=== PATIENT | male | born 1945 | race Caucasian/White ===

== ENCOUNTER → 2018-10-09 | Outpatient (CLI) | payer MEDICARE, BC ==
[~2018-10-09] MED LIST: AMIODARONE HCL100 MG; ASPIRIN325 PO; CALCIUM MAGNES1 EAC2 PO; CENTRUM SILVER1 EAC2 PO; COQ-10100 MG PO; DIGOXIN125 MCG PO; FLECAINIDE ACE100 MG PO; LANOXIN 0.120.125 M1 PO; LISINOPRIL5 MG PO; LOPRESSOR25 PO; PACERONE 200 M200 M1 PO; POTASSIUM20 PO; SAVAYSA60 MG PO; XARELTO20 MG PO
== END ==
LOC: M.RAD 11:29
DX: J84.10 Pulmonary fibrosis, unspecified (principal); Z79.899 Other long term (current) drug therapy; Z91.048 Other nonmedicinal substance allergy status; Z88.0 Allergy status to penicillin; Z88.8 Allergy status to other drugs, medicaments and biological substances

== ENCOUNTER → 2019-04-10 | Outpatient (CLI) | payer MEDICARE, BC | LOC: M.RAD 15:19 | DX: J98.4 Other disorders of lung (principal); Z79.899 Other long term (current) drug therapy ==

== ENCOUNTER → 2019-10-22 | Outpatient (CLI) | payer MEDICARE, BC | LOC: M.RAD 12:20 | PROVIDERS: ATTEND Internal Medicine Cardiovascular Disease | DX: Z79.899 Other long term (current) drug therapy (principal) ==

== ENCOUNTER → 2020-04-17 | Outpatient (CLI) | payer MEDICARE, BC | LOC: M.RAD 12:04 | PROVIDERS: ATTEND Internal Medicine Cardiovascular Disease | DX: I48.0 Paroxysmal atrial fibrillation (principal); J84.10 Pulmonary fibrosis, unspecified; Z79.899 Other long term (current) drug therapy ==

== ENCOUNTER → 2020-10-22 | Outpatient (CLI) | payer MEDICARE, BC | LOC: M.RAD 11:56 | PROVIDERS: ATTEND Internal Medicine Cardiovascular Disease | DX: J84.10 Pulmonary fibrosis, unspecified (principal); I48.0 Paroxysmal atrial fibrillation; I42.8 Other cardiomyopathies; Z79.899 Other long term (current) drug therapy ==

== ENCOUNTER 2021-03-08 14:10 | Inpatient (IN) | payer MEDICARE, BC ==
[~2021-03-08] VITALS: Ht 177.8 cm; Wt 104.0 kg
[2021-03-08 14:14] VITALS: BP 129/72
[2021-03-08] MEDS ORDERED: XARELTO20 MG PO (14:17)
[2021-03-08 14:46] LABS: ABSOLUTE LYMPHOCYTES 0.8 thou/uL (0.8-5.3); ABSOLUTE MONOCYTES 0.8 thou/uL (0.0-1.2); ABSOLUTE NEUTROPHILS 3.2 thou/uL (1.6-8.1); BASOPHILS 0.5 %; EOSINOPHILS 0.3 %; HEMATOCRIT 45.5 % (42.0-52.0); HEMOGLOBIN 16.1 gm/dL (14.0-18.0); MCH 30.6 pg (26.0-34.0); MCHC 35.3 g/dL (28.0-37.0); MCV 86.5 fL (80.0-100.0); MONOCYTES 16.6 %; MPV 7.1 fl. (7.2-11.1); NUCLEATED RBCS 0 /100WBC; PLATELET COUNT* 160 thou/uL (150-400); POLYS 66.6 %; RBC 5.26 mil/uL (4.50-6.00); RDW-CV 13.2 % (10.5-14.5); WBC 4.7 thou/uL (4.0-11.0)
[2021-03-08 14:52] LABS: CALCIUM 8.1 mg/dL (8.5-10.1); POTASSIUM 4.8 mmol/L (3.5-5.1)
[2021-03-08 15:03] LABS: ALBUMIN 3.9 g/dL (3.4-5.0); TOTAL BILIRUBIN 1.1 mg/dL (<0.1-1.0); TOTAL PROTEIN 7.4 g/dL (6.4-8.2)
[2021-03-08 15:59] LABS: CALCIUM 8.2 mg/dL (8.5-10.1); POTASSIUM 4.8 mmol/L (3.5-5.1)
[2021-03-08 20:30] VITALS: BP 131/70
[2021-03-08 20:54] LABS: URINE BILIRUBIN NEGATIVE (Negative); URINE BLOOD NEGATIVE (Negative); URINE CLARITY CLEAR; URINE COLOR YELLOW; URINE GLUCOSE-RANDOM NEGATIVE (Negative); URINE KETONES TRACE (Negative); URINE LEUKOCYTES-REFLEX NEGATIVE (Negative); URINE NITRITE-REFLEX NEGATIVE (Negative); URINE PROTEIN NEGATIVE (Negative); URINE SPECIFIC GRAVITY 1.015 (1.005-1.030); URINE UROBILINOGEN 0.2 E.U./dl (0.2-1.0)
[2021-03-08 20:57] LABS: URINE POTASSIUM-RANDOM 72.1 mmol/L
[2021-03-08 21:34] LABS: CALCIUM 7.9 mg/dL (8.5-10.1); POTASSIUM 4.7 mmol/L (3.5-5.1)
[2021-03-09] VITALS (7 sets, daily range): BP systolic 122–144; BP diastolic 68–90
[2021-03-09 05:16] LABS: ABSOLUTE LYMPHOCYTES 0.8 thou/uL (0.8-5.3); ABSOLUTE MONOCYTES 0.6 thou/uL (0.0-1.2); ABSOLUTE NEUTROPHILS 2.3 thou/uL (1.6-8.1); BASOPHILS 0.6 %; EOSINOPHILS 0.4 %; HEMATOCRIT 42.3 % (42.0-52.0); HEMOGLOBIN 14.7 gm/dL (14.0-18.0); LYMPHOCYTES 21.7 %; MCH 30.3 pg (26.0-34.0); MCHC 34.7 g/dL (28.0-37.0); MCV 87.4 fL (80.0-100.0); MONOCYTES 16.1 %; MPV 7.1 fl. (7.2-11.1); NUCLEATED RBCS 0 /100WBC; PLATELET COUNT* 141 thou/uL (150-400); POLYS 61.2 %; RBC 4.84 mil/uL (4.50-6.00); RDW-CV 13.1 % (10.5-14.5); WBC 3.7 thou/uL (4.0-11.0)
[2021-03-09 05:23] LABS: CALCIUM 7.6 mg/dL (8.5-10.1); CREATININE 0.8 mg/dL (0.6-1.3); POTASSIUM 4.1 mmol/L (3.5-5.1)
[2021-03-09 18:44] LABS: ALBUMIN 3.7 g/dL (3.4-5.0); CREATININE 0.9 mg/dL (0.6-1.3); POTASSIUM 4.4 mmol/L (3.5-5.1); TOTAL BILIRUBIN 1.1 mg/dL (<0.1-1.0); TOTAL PROTEIN 7.3 g/dL (6.4-8.2)
[2021-03-10] VITALS: BP 116/72
[2021-03-10 04:31] VITALS: BP 124/69
[2021-03-10 07:23] LABS: HEMATOCRIT 44.5 % (42.0-52.0); HEMOGLOBIN 15.5 gm/dL (14.0-18.0); MCH 30.3 pg (26.0-34.0); MCHC 34.9 g/dL (28.0-37.0); MCV 86.9 fL (80.0-100.0); RBC 5.12 mil/uL (4.50-6.00); RDW-CV 12.9 % (10.5-14.5); WBC 5.6 thou/uL (4.0-11.0)
[2021-03-10 07:40] LABS: ALBUMIN 3.4 g/dL (3.4-5.0); CALCIUM 7.9 mg/dL (8.5-10.1); CREATININE 0.8 mg/dL (0.6-1.3); TOTAL BILIRUBIN 1.2 mg/dL (<0.1-1.0); TOTAL PROTEIN 6.9 g/dL (6.4-8.2)
[2021-03-10 08:30] VITALS: BP 104/64
[2021-03-10 11:30] VITALS: BP 131/74
[2021-03-10 20:00] VITALS: BP 148/80
[2021-03-11 00:16] VITALS: BP 156/95
[2021-03-11 04:36] VITALS: BP 144/82
[2021-03-11 04:56] LABS: CALCIUM 8.1 mg/dL (8.5-10.1); CREATININE 0.7 mg/dL (0.6-1.3); POTASSIUM 4.1 mmol/L (3.5-5.1)
[2021-03-11 08:00] VITALS: BP 142/84
[2021-03-11 12:42] VITALS: BP 126/72
[2021-03-11] MEDS ORDERED: MAXIMUM D3325 MCG PO (14:38)
[2021-03-11 17:26] VITALS: BP 148/78
[2021-03-11 20:00] VITALS: BP 188/98
[2021-03-12 02:36] VITALS: BP 135/78
[2021-03-12 05:54] VITALS: BP 130/76
[2021-03-12 10:33] LABS: CALCIUM 8.2 mg/dL (8.5-10.1); POTASSIUM 3.8 mmol/L (3.5-5.1)
[2021-03-12 11:20] VITALS: BP 130/76
[2021-03-12 14:56] VITALS: BP 141/72
[2021-03-12 16:12] VITALS: BP 130/76
== END 2021-03-12 15:30 | disposition home or self-care (01) | DRG 177 ==
LOC: M.ERS 14:10 → M.TBA-ER 16:14 → M.ORTHSURG 03-09 17:10
PROVIDERS: Emergency Medicine Emergency Medical Services; Internal Medicine; Internal Medicine Nephrology; ADMIT Internal Medicine; ATTEND Internal Medicine
DX: U07.1 COVID-19 (principal); J12.82 Pneumonia due to coronavirus disease 2019; E87.1 Hypo-osmolality and hyponatremia; I48.91 Unspecified atrial fibrillation; Z79.01 Long term (current) use of anticoagulants; Z88.0 Allergy status to penicillin; Z91.048 Other nonmedicinal substance allergy status; Z91.014 Allergy to mammalian meats; I10 Essential (primary) hypertension; E66.9 Obesity, unspecified; Z68.32 Body mass index [BMI] 32.0-32.9, adult